=== PATIENT | female | born 1995 | race Caucasian/White ===

== ENCOUNTER 2020-09-17 18:23 | Emergency (ER) | payer BC, SELFPAY ==
--- NOTE | ~2020-09-17 | CT_ITS ---
EXAMINATION: CT brain wo con DATE: 09/17/2020 19:10 INDICATION: Head injury. Right head left face injuries. Syncope. TECHNIQUE: Computed tomography (CT) of the head was performed without intravenous contrast. The mA wa s adjusted according to patient size. Iterative reconstruction technique was employed. Exam dose: 60 5.33 mGy-cm total exam DLP. COMPARISON: None FINDINGS: Prominent right frontal cephalohematoma. No intracranial coup or contrecoup injury is ident ified. No intracranial mass lesion or hemorrhage or cerebrovascular accident. No midline shift or mass effec t. Normal ventricular size. Normal sparks-white matter differentiation. No subdural or epidural hematom a. No skull fracture or bone destruction. The mastoid air cells and included paranasal sinuses are jory lly developed and aerated. IMPRESSION: Right frontal cephalhematoma; no skull fracture or acute intracranial finding Reviewed, dictated and finalized at [facility]. Reviewed, dictated and finalized at [facility]. IMPRESSION: Right frontal cephalhematoma; no skull fracture or acute intracran ial finding
--- NOTE | ~2020-09-17 | CT_ITS ---
EXAMINATION: CT facial bones wo con DATE: 09/17/2020 19:11 INDICATION: Head injury. Patient fell and struck left side of face, right head. TECHNIQUE: Computed tomography (CT) of the facial bones and maxillofacial region was performed withou t intravenous contrast. Automated exposure control and iterative reconstruction technique were employ ed. Exam dose: 467.46 mGy-cm total exam DLP. COMPARISON: 09/17/2020 CT head FINDINGS: Right frontal cephalhematoma. No underlying skull fracture is evident. The orbital rims and cummings, frontozygomatic sutures and zygomatic arches and the remainder of the fac ial bones are intact. No nasal bone fracture. Anterior maxillary spine is intact. Normal development and aeration of the paranasal sinuses. There are no paranasal sinus fluid levels. No mandible fracture or dislocation. Normal alignment of C1-C7. IMPRESSION: Right frontal cephalhematoma; no skull fracture or facial fracture is detected Reviewed, dictated and finalized at [facility]. Reviewed, dictated and finalized at [facility].
--- NOTE | 2020-09-17 18:15 | ECG_ITS ---
Measurements Intervals [place] Rate: 59 P: 67 MD: 131 QRS: 117 QRSD: 82 T: 71 QT: 429 QTc: 425 Interpretive Statements SINUS BRADYCARDIA RIGHT AXIS DEVIATION LOW QRS VOLTAGE IN PRECORDIAL LEADS CANNOT RULE OUT SEPTAL INFARCT, AGE INDETERMINATE BASELINE ARTIFACT- I, III, AVR, AVL, AVF, V1-V2 ABNORMAL ECG Electronically Signed On 09-18-2020 8:37:32 CDT by Zev Cabrales D.O.
[2020-09-17 18:24] VITALS: BP 133/62; PULSE 58; RESP 16; TEMP 37.1; O2SAT 97
--- NOTE | 2020-09-17 18:30 | ED.OVERDOSE ---
HPI - Overdose General Chief Complaint: Overdose Stated Complaint: huffed compressed air needs checked out now History of Present Illness HPI Narrative: [place]und unconscious in truck stop bathroom. Admitted to huffing canned air prior to passing out. She did strike her head in the fall and she is complaining of a moderate headache. She also reports drinking 1 [place] hard lemonade today. No nausea, vomiting, fever, chest pain. Related Data Allergies Allergy/AdvReac Type Severity Reaction Status Date / Time No Known Allergies Allergy Verified 09/17/20 18:41 Review of Systems Review of Systems: All systems reviewed & are unremarkable except as noted in HPI and below Constitutional: Constitutional: Denies chills and Denies fever(s) ENT: Denies sore throat Cardiovascular: Cardiovascular: Denies chest pain Respiratory: Respiratory: Denies dyspnea Gastrointestinal: Gastrointestinal: Denies abdominal pain and Denies nausea Genitourinary: Genitourinary: Reports no additional female genitourinary complaints Musculoskeletal: Musculoskeletal: Denies back pain Neurologic: Reports syncope and Reports headache(s) [facility] Social History Social History (Updated 09/17/20 @ 18:34 by Ken Bautista MD) Alcohol intake: current Gender identity (if verbalized by the patient): Female Exam Const: General: no acute distress and alert Orientation/consciousness: patient oriented x3 HENMT: Other: Large hematoma to right forehead. Bruising under right eye. Eyes: Conjunctivae: conjunctivae normal Pupils: Equal, round and reactive pupils present EOM: EOMs intact bilaterally Neck: Neck: normal visual inspection Resp: Effort & Inspection: normal respiratory effort Auscultation: clear to auscultation bilaterally Cardio: Rate: regular rate Rhythm: regular rhythm GI: GI Palp: Yes Soft to palpation and No Tenderness to palpation present (GI) Skin: Wounds: no wounds Neuro: General: patient oriented x3, moves all extremities, no focal motor deficits and CN's II-XI intact bilaterally Speech: normal speech Extrem: General: normal to inspection Course Vital Signs Vital signs: Vital Signs Temperature 37.1 C 09/17/20 18:24 Pulse Rate 58 L 09/17/20 18:24 Respiratory Rate 16 09/17/20 18:24 Blood Pressure 133/62 09/17/20 18:24 Pulse Oximetry 97 09/17/20 18:24 Temperature 37.1 C 09/17/20 18:24 Pulse Rate 56 L 09/17/20 19:56 Respiratory Rate 18 09/17/20 19:56 Blood Pressure 111/83 09/17/20 19:56 Pulse Oximetry 100 09/17/20 19:56 MDM - Overdose MDM Narrative Medical decision making narrative: Head injury with nausea and headache. Complicated by intoxication, although only mild at this point. She will need a CT to rule out significnat brain injury or facial fracture. Differential Diagnosis Differential diagnosis: Likely other (syncope, inhalent induced arryhtmia, SDH, SAH ) Medical Records Attestation: I reviewed the patient's medical records. Imaging Data Radiologist's impression: ITS Impressions Head CT 09/17/20 19:12 IMPRESSION: Right frontal cephalhematoma; no skull fracture or acute intracranial finding Face CT 09/17/20 19:17 IMPRESSION: Right frontal cephalhematoma; no skull fracture or facial fracture is detected Discharge Plan Discharge Clinical Impression: Inhalant abuse with other inhalant-induced disorder, Contusion of face, Closed head injury Patient Disposition: Home, Self-Care Condition: Stable Instructions: Head Injury (ED), Polysubstance Abuse (ED) Follow-up/Referrals: PHYSICIAN,LOCAL [employer] [Primary Care Provider] - Curtis Jones MD [Physician] -
[2020-09-17 18:37] VITALS: RESP 19
[2020-09-17 19:56] VITALS: BP 111/83; PULSE 56; RESP 18; O2SAT 100
== END 2020-09-17 19:57 | disposition home or self-care (01) ==
PROVIDERS: Emergency Provider Emergency Medicine
DX: F18.188 Inhalant abuse with other inhalant-induced disorder (principal); S00.83XA Contusion of other part of head, initial encounter; S05.11XA Contusion of eyeball and orbital tissues, right eye, initial encounter; R00.1 Bradycardia, unspecified; R94.31 Abnormal electrocardiogram [ECG] [EKG]
CPT/HCPCS: 70450; 70486; 93005; 99284